=== PATIENT | male | born 1985 | race Caucasian/White ===

== ENCOUNTER 2017-07-04 06:10 | Emergency (ER) | payer OTHER ==
[2017-07-04 06:15] VITALS: BP 130/82; PULSE 78; TEMP 98.7; BMI 37.5
--- NOTE | 2017-07-04 06:21 | PDOC ---
History of Present Illness - General Chief Complaint: Back Pain Stated Complaint: BACK PAIN RADIATING TO LEGS Past History - Travel Traveled outside of the country in the last 30 days: No Close contact w/someone who was outside of country & ill: No - Past Medical History Allergies/Adverse Reactions: Allergies Allergy/AdvReac Type Severity Reaction Status Date / Time No Known Allergies Allergy Unverified 07/04/17 06:12 Home Medications: Ambulatory Orders Levothyroxine [Synthroid -] 112 mcg PO DAILY 07/04/17 Naproxen [Naprosyn -] 500 mg PO BID #14 tablet 07/04/17 - Suicide/Smoking/Psychosocial Hx Smoking History: Never smoked Review of Systems - Review of Systems Able to Perform ROS?: Yes Is the patient limited Thai proficient: No Constitutional: No: Symptoms Reported, See HPI, Chills, Diaphoresis, Fever, Loss of Appetite, Malaise, Night Sweats, Weakness, Weight Stable, Unintentional Wgt. Loss, Unexplained wgt Loss, Other HEENTM: No: Symptoms Reported, See HPI, Eye Pain, Blurred Vision, Tearing, Recent change in vision, Double Vision, Cataracts, Ear Pain, Ocular Prothesis, Ear Discharge, Nose Pain, Nose Congestion, Tinnitus, Nose Bleeding, Hearing Loss , Throat Pain, Throat Swelling, Mouth Pain, Dental Problems, Difficulty Swallowing, Mouth Swelling, Other Respiratory: No: Symptoms reported, See HPI, Cough, Orthopnea, Shortness of Breath, SOB with Exertion, SOB at Rest, Stridor, Wheezing, Productive cough, Hemoptysis, Other Cardiac (ROS): No: Symptoms Reported, See HPI, Chest Pain, Edema, Irregular Heart Rate, Lightheadedness, Palpitations, Syncope, Chest Tightness, Other ABD/GI: No: Symptoms Reported, See HPI, Abdominal Distended, Abd. Pain w/ defecation, Blood Streaked Bowels, Constipated, Diarrhea, Difficulty Swallowing , Nausea, Poor Appetite, Poor Fluid Intake, Rectal Bleeding, Vomiting, Indigestion, Abdominal cramping, Tarry Stools, Other Musculoskeletal: Yes: Back Pain, Muscle Pain, Other (pain running down buttocks and anterior bilateral legs) Integumentary: No: Symptoms Reported, See HPI, Bruising, Change in Color, Change in Hair/Nails, Dryness, Erythema, Flushing, Lesions, Lumps, Pallor, Pruritus, Rash, Sweating, Other Neurological: Yes: Other (pain with ambulation) Psychiatric: No: Anxiety, Depression, Frequent Crying, Stressors, Sleep Pattern Change, Emotional Problems, Mood Swings, Change in Appetite, Other Endocrine: No: Symptoms Reported, See HPI, Excessive Sweating, Flushing, Intolerance to Cold, Intolerance to Heat, Increased Hunger, Increased Thirst, Increased Urine, Unexplained Weight Gain, Unexplained Weight Loss, Change in Weight, Other *Physical Exam - Vital Signs Last Vital Signs Temp Pulse Resp BP Pulse Ox 98.7 F 78 18 130/82 97 07/04/17 06:12 07/04/17 06:12 07/04/17 06:12 07/04/17 06:12 07/04/17 06:12 - Physical Exam General Appearance: Yes: Nourished, Appropriately Dressed, Obese HEENT: positive: EOMI, CRISTINA, Normal ENT Inspection, Normal Voice, Symmetrical, TMs Normal, Pharynx Normal Neck: positive: Trachea midline, Supple Respiratory/Chest: positive: Lungs Clear, Normal Breath Sounds Cardiovascular: positive: Regular Rhythm, Regular Rate, S1, S2 Gastrointestinal/Abdominal: positive: Normal Bowel Sounds, Flat, Soft Musculoskeletal: positive: Normal Inspection, Muscle Spasm. negative: CVA Tenderness, Vertebral Tenderness Extremity: positive: Normal Capillary Refill, Normal Inspection Integumentary: positive: Normal Color, Dry, Warm Neurologic: positive: board certified orthodontist II-XII NML intact, Fully Oriented, Alert, Normal Mood/ Affect, Normal Response, Motor Strength 5/5 ED Treatment Course - RADIOLOGY Radiology Studies Ordered: Category Date Time Status LUMBAR SPINE CT W/O CONTRAST [CT] Stat CT Scan 07/04/17 06:15 Ordered Medical Decision Making - Medical Decision Making 07/04/17 06:16 Pt is overweight and out of shape and lwisted last week to lift something up and felt immediate pain in his lumbar spine, with pain radiating down legs. Pt has been able to manage the pain with advil, but now the pain is getting worse. Last week pt was able to ambulate and drive. Now pt is visiting his mom and brother and they bring him in for assessment. Pt has so much pain that he had te be wheeled in via wheelchair from the parking lot. 07/04/17 06:18 Pt will be given percocet and he will get a CT scan of the L spine. No falls or injuries. 07/04/17 06:48 CT scan result is pending. Pt will be signed out to the day ER attending. *DC/Admit/Observation/Transfer Diagnosis at time of Disposition: Sciatic leg pain - Discharge Dispostion Disposition: HOME Condition at time of disposition: Stable - Prescriptions Prescriptions: Naproxen [Naprosyn -] 500 mg PO BID #14 tablet - Referrals Referrals: STAFF,NOT ON [Primary Care Provider] - - Patient Instructions Printed Discharge Instructions: Low Back Pain, DI for Sciatica Additional Instructions: Take naproxen twice a day as needed for pain. Take this medication with food and plenty of water. You may also take tylenol extra strength (500mg) every 4 hours as needed for pain. Please see your primary care doctor within 1 week. Return to the emergency department immediately for any new or concerning symptoms or if your symptoms get worse. Thank you for coming to the Emergency Department today for your care. It was a pleasure to see you today. Please note that your evaluation is INCOMPLETE until you follow-up with your doctor.
[2017-07-04] MEDS ORDERED: ACETAMINOPHEN 500 MG TABLET (FP) PO ONE (08:18)
[2017-07-04] MEDS ORDERED: KETOROLAC TROMETHAMINE 15 MG/ML VIAL IM ONE (08:18)
[2017-07-04] MEDS ORDERED: KETOROLAC TROMETHAMINE 30 MG/1 ML VIAL ONE (08:20)
--- NOTE | 2017-07-04 08:49 | PDOC ---
*Physical Exam - Vital Signs Last Vital Signs Temp Pulse Resp BP Pulse Ox 98.7 F 78 18 130/82 97 07/04/17 06:12 07/04/17 06:12 07/04/17 06:12 07/04/17 06:12 07/04/17 06:12 ED Treatment Course - Medications Given in the ED: ED Medications Discontinued Medications Generic Name Dose Route Start Last Admin Trade Name Kody PRN Reason Stop Dose Admin Acetaminophen 1,000 mg 07/04/17 08:18 07/04/17 08:24 Tylenol - PO 07/04/17 08:19 Not Given ONCE ONE Ketorolac Tromethamine 30 mg 07/04/17 08:18 07/04/17 08:23 Toradol Injection - IM 07/04/17 08:19 30 mg ONCE ONE Administration Oxycodone/Acetaminophen 2 combo 07/04/17 06:15 07/04/17 06:20 Percocet 5/325 - PO 07/04/17 06:16 2 combo ONCE ONE Administration Medical Decision Making - Medical Decision Making 07/04/17 08:37 Patient signed out to me by Dr. Bansal. Briefly, presents with 1 week of lower paraspinal abdominal pain with radiation down his legs c/f sciatica. Patient was pending CT scan which has returned and reveals no acute pathology and mild canal stenosis. Discussed the results with the patient. The patient reports the Percocet has minimally improved his pain. On re-exam, pt with +straight leg test consistent with scaitica, possible 2/2 herniated disc. LE strength and sensory exam wnl. I ordered 30 mg of Toradol IM and will reassess. 07/04/17 08:55 Pt reports moderate relief with toradol and requests to go home. Pt ambulating in ED with antalgic but stable gait. WIll DC to f/u with PMD within 1 week. I discussed the physical exam findings, ancillary test results and final diagnoses with the patient. I answered all of the patient's questions. The patient was satisfied with the care received and felt comfortable with the discharge plan and treatment plan. The patient will call their primary care physician within 24 hours to arrange follow-up and will return to the Emergency Department with any new, persistent or worsening symptoms. *DC/Admit/Observation/Transfer Diagnosis at time of Disposition: Pain in lower extremity due to sciatica - Discharge Dispostion Disposition: HOME Condition at time of disposition: Stable Admit: No - Patient Instructions Printed Discharge Instructions: Low Back Pain, DI for Sciatica Additional Instructions: Take naproxen twice a day as needed for pain. Take this medication with food and plenty of water. You may also take tylenol extra strength (500mg) every 4 hours as needed for pain. Please see your primary care doctor within 1 week. Return to the emergency department immediately for any new or concerning symptoms or if your symptoms get worse. Thank you for coming to the Emergency Department today for your care. It was a pleasure to see you today. Please note that your evaluation is INCOMPLETE until you follow-up with your doctor. - Attestations Physician Attestion: 07/04/17 08:58 I, Dr. Yovana Mendoza MD, attest that this document has been prepared under my direction and personally reviewed by me in its entirety. I further attest, that it accurately reflects all work, treatment, procedures and medical decision -making performed by me.
== END 2017-07-04 09:06 | disposition home or self-care (01) ==
LOC: FER 06:10
PROC: 3E0233Z Introduction of Anti-inflammatory into Muscle, Percutaneous Approach (ICD-10-PCS; principal; 2017-07-04)
DX: M54.40 Lumbago with sciatica, unspecified side (principal)
CPT/HCPCS: 72131-TC; 99282-25

== ENCOUNTER 2019-11-02 01:27 | Day surgery (SDC) | payer BC ==
--- NOTE | 2019-11-02 01:38 | PDOC ---
History of Present Illness - General Chief Complaint: Pain, Acute Stated Complaint: ABDOMINAL PAIN RADIATING INTO BACK Time Seen by Provider: 11/02/19 01:29 History Source: Patient Exam Limitations: No Limitations - History of Present Illness Initial Comments: 11/02/19 01:35 This is a 34-year-old male who comes in complaining of epigastric pain radiating to his back. Patient has a history of elevated liver enzymes and had a CAT scan today to rule out gallstones and gallbladder problems. Patient said he does not have the results of the ultrasound yet. Patient said that he had acute onset of the pain about 4 hours ago. Patient denies any nausea or vomiting. Patient denies any fevers, chills or diarrhea. Patient denies history of similar pain in the past. Patient denies any chest pain or shortness of breath. Allergies: as per nursing notes Past Medical History: none Social history: Lives with family. No smoking. No alcohol. No illicit drugs. Surgical history: None General: No fevers or chills, no weakness, no weight loss HEENT: No change in vision. No sore throat,. No ear pain CardioVascular: no chest discomfort. No shortness of breath Respiratory:No cough, or wheezing. Gastrointestinal: no nausea, vomiting, diarrhea or constipation, No rectal bleeding, abdominal pain as per HPI Genitourinary: No dysuria, hematuria, or frequency Musculoskeletal: No joint or muscle pain or swelling Neurologic: No headache, vertigo, dizziness or loss of consciousness Psychiatric: nor depression Skin: No rashes or easy bruising Endocrine: no increased thirst or abnormal weight change Allergic: no skin or latex allergy All other systems reviewed and normal Exam: General: Well-nourished well-developed individual, no acute distress HEENT: Throat: Normal, tonsils normal, no erythema or exudate Neck: Supple, no meningeal signs, no lymphadenopathy Eyes::Pupils equal reactive and round, extraocular motion intact Chest: Nontender to palpation Cardiac: S1-S2 normal, regular rate and rhythm, no murmurs rubs or gallops Respiratory: Lungs clear to auscultation bilateral Abdomen: Soft, nondistended, normal bowel sounds, there is tenderness on palpation in the epigastric region no guarding or rebound. Extremities: Warm, dry, no cyanosis, clubbing, or edema Skin: No rashes Neuro: Alert and oriented x3, CN II - XII intact, nonfocal exam with normal strength, normal sensation, normal reflexes, normal gait, Psych: Normal mood and affect Assessment and plan: This is a 34-year-old male with epigastric pain radiating to his back work-up initiated including CBC, comp, lipase, EKG, cardiac enzymes , CAT scan of abdomen and pelvis to rule out pancreatitis. 11/02/19 01:54 11/02/19 05:01 patient feels much better after the Toradol and morphine. Patient however does have a CAT scan that indicates he has acute cholecystitis and recommends a ultrasound so we will get the ultrasound. Patient has an elevated white count with a CAT scan that shows probable cholecystitis. I will start patient on IV antibiotics at this time. Care of this patient was transferred to Dr. Devries at 7 AM. Patient ultrasound is still pending. Patient was given IV antibiotics for presumptive acute cholecystitis. Case discussed in detail with oncoming Emergency Physician including history, physical exam and ancillary studies. Oncoming Emergency Physician has assumed care for the patient and will complete the evaluation and treatment. Patient is aware of the plan. Pt is clinically unchanged and stable. 11/02/19 06:43 Past History - Past Medical History Allergies/Adverse Reactions: Allergies Allergy/AdvReac Type Severity Reaction Status Date / Time No Known Allergies Allergy Verified 11/02/19 02:13 Home Medications: Ambulatory Orders Levothyroxine [Synthroid -] 112 mcg PO DAILY 07/04/17 Thyroid Disease: Yes - Psycho Social/Smoking Cessation Hx Smoking History: Never smoked ED Treatment Course - LABORATORY CBC & Chemistry Diagram: 11/02/19 01:40 11/02/19 01:40 Discharge - Discharge Information Problems reviewed: Yes Clinical Impression/Diagnosis: Abdominal pain Qualifiers: Abdominal location: right upper quadrant Qualified Code(s): R10.11 - Right upper quadrant pain Condition: Stable - Follow up/Referral - Patient Discharge Instructions - Post Discharge Activity
[2019-11-02] MEDS ORDERED: morphine CARPU-JECT 2 MG/1 ML DISP.SYRIN IVPUSH ONE (01:52)
[2019-11-02] MEDS ORDERED: KETOROLAC TROMETHAMINE 30 MG/1 ML VIAL IVPUSH ONE (01:52)
[2019-11-02] MEDS ORDERED: SODIUM CHLORIDE 1,000 ML IV SCH ×4 (02:00→22:20)
[2019-11-02] MEDS ORDERED: KETOROLAC TROMETHAMINE 30 MG/1 ML VIAL ONE (02:07)
[2019-11-02] MEDS ORDERED: morphine SULFATE 4 MG/ML VIAL ONE (02:07)
[2019-11-02 02:37] LABS: BASO % 0.5 % (0-2.0); EOS % 2.5 % (0-4.5); HEMOGLOBIN 14.3 GM/dL (11.7-16.9); LYMPH % 26.1 % (8-40); MCH 29.7 pg (25.7-33.7); MCHC 34.1 g/dl (32.0-35.9); MEAN CELL VOLUME 87.1 fl (80-96); MEAN PLT VOLUME 10.4 fl (7.5-11.1); MONO % 7.2 % (3.8-10.2); NEUT % 63.7 % (42.8-82.8); PLATELET COUNT 243 K/MM3 (134-434); RBC 4.82 M/mm3 (4.00-5.60)
[2019-11-02 03:07] LABS: ALK PHOS 97 U/L (45-117); ANION GAP 9 MMOL/L (8-16); BILIRUBIN,TOTAL 0.4 mg/dL (0.2-1); BLOOD UREA NITROGEN 16.5 mg/dL (7-18); CALCIUM 9.4 mg/dL (8.5-10.1); CHLORIDE 104 mmol/L (98-107); CO2 25 mmol/L (21-32); CREATININE 0.9 mg/dL (0.55-1.3); GLUCOSE,RANDOM 156 mg/dL (74-106); LIPASE 162 U/L (73-393); POTASSIUM 3.9 mmol/L (3.5-5.1); SGOT/AST 59 U/L (15-37); SGPT/ALT 186 U/L (13-61); SODIUM 137 mmol/L (136-145); TOT PROT 7.5 g/dl (6.4-8.2)
[2019-11-02] MEDS ORDERED: PIPERACILLIN/TAZOB 4.5 GM 4.5 GM in DEXTROSE 5%-WATER 100 ML IVPB ONE (05:04)
[2019-11-02] MEDS ORDERED: PIPERACILLIN/TAZOBACTAM 4.5 GM VIAL IVPB ONE (05:51)
[2019-11-02] MEDS ORDERED: SODIUM CHLORIDE 1,000 ML IV ONE (06:56)
--- NOTE | 2019-11-02 07:37 | PDOC ---
*Physical Exam - Vital Signs Last Vital Signs Temp Pulse Resp BP Pulse Ox 97.8 F 64 16 109/70 98 11/02/19 02:15 11/02/19 07:29 11/02/19 07:29 11/02/19 07:29 11/02/19 07:29 - Physical Exam 11/02/19 07:34 awake alert lungs clear bilat heart rrrr no mrg abd soft min tenderness epigastric area. no rebound no guarding. ED Treatment Course - LABORATORY CBC & Chemistry Diagram: 11/02/19 01:40 11/02/19 01:40 - ADDITIONAL ORDERS Additional order review: Laboratory Results 11/02/19 11/02/19 11/02/19 01:45 01:40 01:40 Sodium 137 Potassium 3.9 Chloride 104 Carbon Dioxide 25 Anion Gap 9 BUN 16.5 Creatinine 0.9 Est GFR (CKD-EPI)AfAm 130.52 Est GFR (CKD-EPI)NonAf 112.62 Random Glucose 156 H Lactic Acid 1.7 Calcium 9.4 Total Bilirubin 0.4 AST 59 H ALT 186 H Alkaline Phosphatase 97 Creatine Kinase 81 Troponin I < 0.02 Total Protein 7.5 Albumin 4.0 Lipase Cancelled 162 11/02/19 01:40 RBC 4.82 MCV 87.1 MCHC 34.1 RDW 13.0 MPV 10.4 Neutrophils % 63.7 Lymphocytes % 26.1 Monocytes % 7.2 Eosinophils % 2.5 Basophils % 0.5 - Medications Given in the ED: ED Medications Discontinued Medications Generic Name Dose Route Start Last Admin Trade Name Freq PRN Reason Stop Dose Admin Piperacillin Sod/Tazobactam 100 mls @ 200 mls/hr 11/02/19 05:04 11/02/19 06: 04 Sod 4.5 gm/ Dextrose IVPB 11/02/19 05:33 200 mls/hr ONCE ONE Administration Protocol Ketorolac Tromethamine 30 mg 11/02/19 01:52 11/02/19 02:13 Toradol Injection - IVPUSH 11/02/19 01:53 30 mg ONCE ONE Administration Morphine Sulfate 2 mg 11/02/19 01:52 11/02/19 02:13 Morphine Injection - IVPUSH 11/02/19 01:53 2 mg ONCE ONE Administration Medical Decision Making - Medical Decision Making 11/02/19 07:34 34 yo male recently diagnosed diabetes 1 week ago. started on metformin, which was dc'd due to elevated liver enzymes. here today c/o epigastric pain, n/v. pt seen overnight by prior attending. assumed care of pt at [address] a/p which showed dilated gb, questionable wall edema. us pending. labs noted for mild liver elevation/ review pt prior med record in his chart in phone, had LFT 65, 134 on 10/18/19. has been having epigastric pain after eating for some time. currently not on any diabetes medication. no f/c no other complaints. plan : await us results, iv hydration. has already been given zosyn. 11/02/19 07:46 gallbladder us with stone in the neck, nonmobile. pericholecystic fluid, thickened. poss cholecystitis. surgery paged. given second L ns bolus, and NS 200 ml / hr 11/02/19 07:[address] Champion. [phone] called awaiting call back 11/02/19 08:19 11/02/19 09:14 d/w dr Champion. states pt LFT were elevated on 10/18, then increased even further on 10/28, which were slightly higher than today. us performed yesterday did show a stone, but not impacted and no pericholecystic fluid. todays us is change from day prior. will coordinate with patient post operatively to arrange starting medication for Diabetes. has been in communication with patient ongoing. Discharge - Discharge Information Problems reviewed: Yes Clinical Impression/Diagnosis: Cholecystitis Abdominal pain Qualifiers: Abdominal location: right upper quadrant Qualified Code(s): R10.11 - Right upper quadrant pain Condition: Stable - Admission Yes - Follow up/Referral - Patient Discharge Instructions - Post Discharge Activity
[2019-11-02] MEDS ORDERED: SODIUM CHLORIDE 0.9% 1000 ML INFUS.BAG IV ONE (07:45)
[2019-11-02 09:37] VITALS: BMI 39.9
--- NOTE | 2019-11-02 11:23 | EKG ---
Test Reason : Blood Pressure : / mmHG Vent. Rate : 070 BPM Atrial Rate : 070 BPM P-R Int : 122 ms QRS Dur : 100 ms QT Int : 388 ms P-R-T Axes : 014 010 019 degrees QTc Int : 419 ms NORMAL SINUS RHYTHM NORMAL ECG NO PREVIOUS ECGS AVAILABLE Confirmed by Zen Arita MD ([id number]) on 11/02/2019 11:22:54 AM Referred By: ELICEO SIMS Confirmed By:Zen Arita MD
--- NOTE | 2019-11-02 11:34 | HP ---
Admitting History and Physical - Primary Care Physician PCP: Kelly Champion - Admission Chief Complaint: epigastric pain through to back History of Present Illness: 34yo obese M with hypothyroidism, newly diagnosed with DM2, presented with epigastric pain radiating to back, without N/V, F/C, or change in bowel habits. He had experienced milder pain in July and August after late night fast food meals, but they were self-limited. Did not seek attention for those. Recently saw PMD and had A1C of 10, was sent home with metformin, but labs came back with elevated LFTs, so he was told to stop the medicine and was sent for an US yesterday (outside). He came to ER early this am because of the pain, though, and CT and US were done, showing fatty liver and distended gallbladder with possible stone lodged in the neck and some pericholecystic fluid. WBC 11, afebrile, and pain has now resolved. He was given a dose of Zosyn, IV fluids, and is seen and examined on the floor with family present. Glucose was 155, now 110. He is feeling better, resting comfortably. Per ER note, outside US showed a gallstone, but not impacted. AST/ALT higher than 1/14, but a little less than 1/24. Lipase is normal. History Source: Patient, Family Member () Limitations to Obtaining History: No Limitations - Past Medical History Gastrointestinal: Yes: Other (morbid obesity) Endocrine: Yes: Diabetes Mellitus (newly diagnosed - A1C reported as 10), Hypothyroidism - Past Surgical History Past Surgical History: Yes: None - Smoking History Smoking history: Current some day smoker (cigars rarely) Have you smoked in the past 12 months: Yes Aproximately how many cigarettes per day: 0 (cigars only, rarely) - Alcohol/Substance Use Hx Alcohol Use: Yes (rarely) History of Substance Use: reports: None - Social History Usual Living Arrangement: Yes: With Spouse ADL: Independent Occupation: computer technology Home Medications - Allergies Allergies/Adverse Reactions: Allergies Allergy/AdvReac Type Severity Reaction Status Date / Time No Known Allergies Allergy Verified 11/02/19 02:13 - Home Medications Home Medications: Ambulatory Orders Levothyroxine [Synthroid -] 112 mcg PO DAILY 07/04/17 Home Medications (free text): was on metformin for 2 doses couple days ago, but told to stop because of elevated LFTs Family Medical History Family Hx Cardiac Disorders: Mother (unknown heart condition) Other Family History: father of brain aneurysm; brother with hypothyroidism and had gb out Review of Systems - Review of Systems Constitutional: denies: Chills, Fever Eyes: reports: Other (wears glasses). denies: Recent Change in Vision HENT: denies: Difficult Swallowing, Throat Pain Neck: denies: Pain on Movement, Stiffness, Swollen Glands, Tenderness Cardiovascular: denies: Chest Pain, Palpitations Respiratory: denies: Cough, SOB Gastrointestinal: reports: Abdominal Pain (with hpi). denies: Constipation, Diarrhea, Nausea, Vomiting Genitourinary: denies: Burning, Dysuria Musculoskeletal: denies: Back Pain, Joint Pain, Muscle Pain Integumentary: denies: Change in Color, Rash Neurological: denies: Dizziness, Headache, Unsteady Gait Psychiatric: denies: Anxiety, Depression Physical Examination Vital Signs: Vital Signs Temperature 97.6 F 11/02/19 09:13 Pulse Rate 58 L 11/02/19 09:13 Respiratory Rate 16 11/02/19 09:13 Blood Pressure 122/83 11/02/19 09:13 O2 Sat by Pulse Oximetry (%) 98 11/02/19 09:13 Constitutional: Yes: No Distress, Calm, Obese Eyes: Yes: Conjunctiva Clear, EOM Intact. No: Sclera Icterus HENT: Yes: Atraumatic, Normocephalic Neck: Yes: Supple, Trachea Midline Cardiovascular: Yes: Regular Rate and Rhythm Respiratory: Yes: Regular, CTA Bilaterally Gastrointestinal: Yes: Normal Bowel Sounds, Soft, Abdomen, Obese. No: Tenderness, Tenderness, Epigastrium ...Rectal Exam: Yes: Deferred Renal/: No: CVA Tenderness - Left, CVA Tenderness - Right Musculoskeletal: No: Joint Stiffness, Joint Swelling Extremities: No: Cool, Cyanosis Edema: No Peripheral Pulses WNL: Yes Integumentary: No: Jaundice, Rash Neurological: Yes: Alert, Oriented Psychiatric: Yes: Alert, Oriented Labs: CBC, BMP 11/02/19 01:40 11/02/19 01:40 CMP Sodium 137 mmol/L (136-145) 11/02/19 01:40 Potassium 3.9 mmol/L (3.5-5.1) 11/02/19 01:40 Chloride 104 mmol/L (98-107) 11/02/19 01:40 Carbon Dioxide 25 mmol/L (21-32) 11/02/19 01:40 Anion Gap 9 MMOL/L (8-16) 11/02/19 01:40 BUN 16.5 mg/dL (7-18) 11/02/19 01:40 Creatinine 0.9 mg/dL (0.55-1.3) 11/02/19 01:40 Est GFR (CKD-EPI)AfAm 130.52 11/02/19 01:40 Est GFR (CKD-EPI)NonAf 112.62 11/02/19 01:40 Random Glucose 156 mg/dL (74-106) H 11/02/19 01:40 Lactic Acid 1.7 mmol/L (0.4-2.0) 11/02/19 01:45 Calcium 9.4 mg/dL (8.5-10.1) 11/02/19 01:40 Total Bilirubin 0.4 mg/dL (0.2-1) 11/02/19 01:40 AST 59 U/L (15-37) H 11/02/19 01:40 ALT 186 U/L (13-61) H 11/02/19 01:40 Alkaline Phosphatase 97 U/L (45-117) 11/02/19 01:40 Creatine Kinase 81 U/L (26-308) 11/02/19 01:40 Troponin I < 0.02 ng/ml (0.00-0.05) 11/02/19 01:40 Total Protein 7.5 g/dl (6.4-8.2) 11/02/19 01:40 Albumin 4.0 g/dl (3.4-5.0) 11/02/19 01:40 Lipase 162 U/L (73-393) 11/02/19 01:40 Imaging - Results Cat Scan: Report Reviewed, Image Reviewed (likely fatty liver, no acute abnormalities) Ultrasound: Report Reviewed, Image Reviewed (distended gallbladder with a little pericholecystic fluid, possible stone lodged in neck of gallbladder, no other stones, thickened area of wall, no ductal dilation) EKG: Report Reviewed (NSR 70) Problem List - Problems (1) Calculus of gallbladder with acute cholecystitis and obstruction Assessment/Plan: most likely impacted stone in neck of gallbladder with element of acute cholecystitis admit to surgery 23H/satellite NPO until postop pain meds prn nonnarcotics first line DVT prophylaxis periop antibiotics Discussed with patient risks, benefits and alternatives of laparoscopic possible open cholecystectomy, including but not limited to bleeding, infection , injury to adjacent structures, bile leak or ductal injury, intraabdominal abscess, incisional hernia, need for further procedures, ; alternatives include antibiotics, delayed or no surgery - risks of this include recurrence of biliary colic, cholecystitis, cholangitis, pancreatitis. Patient desires to proceed with operation - will take to OR for above. Informed consent signed for same. Code(s): K80.01 - CALCULUS OF GALLBLADDER W ACUTE CHOLECYSTITIS W OBSTRUCTION (2) Epigastric pain Code(s): R10.13 - EPIGASTRIC PAIN (3) Hypothyroidism Assessment/Plan: continue home med Code(s): E03.9 - HYPOTHYROIDISM, UNSPECIFIED Qualifiers: Hypothyroidism type: unspecified Qualified Code(s): E03.9 - Hypothyroidism , unspecified (4) Diabetes mellitus with hyperglycemia, without long-term current use of insulin Assessment/Plan: FS with SSI while in hospital will f/u with PMD outpatient for medication/long-term mgmt ok to leave Freestyle monitor/probe on left arm diabetic diet when po resumed Code(s): E11.65 - TYPE 2 DIABETES MELLITUS WITH HYPERGLYCEMIA Qualifiers: Diabetes mellitus type: type 2 Qualified Code(s): E11.65 - Type 2 diabetes mellitus with hyperglycemia (5) Morbid obesity with BMI of 40.0-44.9, adult Code(s): E66.01 - MORBID (SEVERE) OBESITY DUE TO EXCESS CALORIES; Z68.41 - BODY MASS INDEX (BMI) 40.0-44.9, ADULT
[2019-11-02] MEDS ORDERED: fentaNYL CITRATE 250 MCG/5 ML VIAL ONE (12:05)
[2019-11-02] MEDS ORDERED: PROPOFOL 20 ML ONE ×3 (12:05)
[2019-11-02] MEDS ORDERED: ROCURONIUM BROMIDE 50 MG/5 ML SYRINGE ONE (12:05)
[2019-11-02] MEDS ORDERED: SUCCINYLCHOLINE CHLORIDE 200 MG/10 ML SYRINGE ONE (12:05)
[2019-11-02] MEDS ORDERED: MIDAZOLAM HCL 2 MG/2 ML SINGLE DOSE VIAL ONE (12:06)
[2019-11-02] MEDS ORDERED: BUPIVACAINE HCL/PF 0.5% (5MG/ML) 10 ML VIAL ONE (12:13)
[2019-11-02] MEDS ORDERED: LIDOCAINE HCL 1%, 10 MG/ML (20ML VIAL) ONE (12:13)
[2019-11-02] MEDS ORDERED: CEFOXITIN SODIUM/DEXTROSE,ISO 2 GM/50 ML BAG ONE (12:49)
[2019-11-02] MEDS ORDERED: BUPIVACAINE HCL/PF 0.5% (5 MG/ML) 30 ML VIAL IJ ONE (13:55)
[2019-11-02] MEDS ORDERED: BENZOIN/ALOE VERA/STORAX/TOLU 58 ML BOTTLE ONE (13:57)
[2019-11-02] MEDS ORDERED: NEOSTIGMINE METHYLSULFATE 0.5 MG/ML - 10 ML MDV ONE (14:14)
--- NOTE | 2019-11-02 14:23 | OP ---
<Aishwarya Mann - Last Filed: 11/02/19 14:21> Operative Note - Note: Operative Date: 11/02/19 Pre-Operative Diagnosis: acute cholecystitis Operation: laparoscopic cholecystectomy Post-Operative Diagnosis: Same as Pre-op Surgeon: Sivakumar Vela Cast Iron Dipper: Aishwarya Mann Anesthesiologist/HEADLINE WRITER: Gisele Roger Anesthesia: General, Local Specimens Removed: gallbladder Estimated Blood Loss (mls): 20 Fluid Volume Replaced (mls): 1,000 Operative Report Dictated: Yes <Sivakumar Vela - Last Filed: 11/02/19 14:56> Operative Note - Note: Post-Operative Diagnosis: Same as Pre-op Anesthesia: General, Local Estimated Blood Loss (mls): 5 Fluid Volume Replaced (mls): 1,500 Operative Report Dictated: Yes
--- NOTE | 2019-11-02 14:23 | SURG ---
Surgery Book Repairer Note Book Repairer: Aishwarya Mann PA-C Date of Service: 11/02/19 Diagnosis: Acute cholecystitis Procedure: laparoscopic cholecystectomy I was present for the entirety of the operative procedure. For further detail, please refer to operative report. Visit type - Case Type Case Type: ED Admission - Emergency Emergency Visit: Yes Care time: The patient presented to the Emergency Department on the above date and was hospitalized for further evaluation of their emergent condition. - New patient This patient is new to me today: No
[2019-11-02] MEDS ORDERED: ACETAMINOPHEN 1000 MG/100 ML VIAL (NON FORMULARY) IVPB ONE (14:34)
[2019-11-02] MEDS ORDERED: ACETAMINOPHEN INJECTION 100 ML IVPB ONE (14:40)
--- NOTE | 2019-11-02 14:42 | OP ---
Operative Note - Note: Operative Date: 11/02/19 Pre-Operative Diagnosis: acute cholecystitis w/impacted stone Operation: laparoscopic cholecystectomy Findings: long/distended gallbladder, critical view identified; one mod size stone palpable in gallbladder Post-Operative Diagnosis: Same as Pre-op Surgeon: Sivakumar Vela Sales Account Executive: Aishwarya Mann Anesthesiologist/MESSENGER OFFICE: Gisele Roger (sc[place]) Anesthesia: General, Local (20ml 0.5% marcaine) Specimens Removed: gallbladder to pathology Estimated Blood Loss (mls): 5 Fluid Volume Replaced (mls): 1,500 (crystalloid) Operative Report Dictated: Yes
[2019-11-02] MEDS ORDERED: ONDANSETRON 4 MG/2 ML VIAL ONE (14:45)
[2019-11-02] MEDS ORDERED: PROMETHAZINE HCL 25 MG/1 ML VIAL IVPUSH PRN (14:57)
[2019-11-02] MEDS ORDERED: ONDANSETRON 4 MG/2 ML VIAL IVPUSH PRN ×2 (14:57→22:20)
[2019-11-02] MEDS ORDERED: DEXAMETHASONE SOD PHOSPHATE 4 MG/1 ML VIAL ONE (14:58)
[2019-11-02] MEDS: INSULIN SLIDING SCALE (NOVOLOG) 1 VIAL SQ SCH ×2 (17:28→23:33)
[2019-11-02] MEDS ORDERED: IBUPROFEN 600 MG TABLET (FP) PO SCH (18:00)
[2019-11-02] MEDS ORDERED: ACETAMINOPHEN 325 MG TABLET (FP) PO SCH (21:00)
[2019-11-02] MEDS: IBUPROFEN 600 MG TABLET (FP) PO SCH (23:23)
[2019-11-03] MEDS: ACETAMINOPHEN 325 MG TABLET (FP) PO SCH ×2 (03:34→08:10)
[2019-11-03] MEDS: IBUPROFEN 600 MG TABLET (FP) PO SCH ×2 (06:01→13:00)
[2019-11-03] MEDS: INSULIN SLIDING SCALE (NOVOLOG) 1 VIAL SQ SCH ×2 (06:18→11:35)
[2019-11-03] MEDS ORDERED: LEVOTHYROXINE NA 112 MCG TABLET (FP) PO SCH ×2 (07:00)
[2019-11-03 10:44] VITALS: PULSE 79; TEMP 97.4
--- NOTE | 2019-11-03 11:49 | DS ---
Physical Examination Vital Signs: Vital Signs Temperature 97.4 F L 11/03/19 10:41 Pulse Rate 79 11/03/19 10:41 Respiratory Rate 18 11/03/19 10:41 Blood Pressure 92/53 L 11/03/19 10:41 O2 Sat by Pulse Oximetry (%) 98 11/03/19 06:54 Findings/Remarks: s/p lap humza seen ambulating in [place], examined in bed present feeling well, tolerating diet pain incisional, managed with alternating nonnarcotics voiding, passed gas, no BM yet Constitutional: Yes: No Distress, Calm, Obese Eyes: Yes: Conjunctiva Clear, EOM Intact HENT: Yes: Atraumatic, Normocephalic Neck: Yes: Supple, Trachea Midline Cardiovascular: Yes: Regular Rate and Rhythm, Tachycardia (mild - just got back from walking) Respiratory: Yes: Regular, CTA Bilaterally Gastrointestinal: Yes: Normal Bowel Sounds, Soft, Abdomen, Obese, Tenderness ( umbilical incisional mainly, no quadrant tenderness) Extremities: No: Cool, Cyanosis Integumentary: Yes: Incision (x4 dressed). No: Jaundice, Rash Wound/Incision: Yes: Steri Strips (under dressings), Dressing Dry and Intact (x4 ). No: Dressing Removed Neurological: Yes: Alert, Oriented. No: Unsteady Gait Psychiatric: Yes: Alert, Oriented Labs: no new labs Discharge Summary Problems reviewed: Yes Reason For Visit: CHOLECYSTITIS Current Active Problems Abdominal pain (Acute) Calculus of gallbladder with acute cholecystitis and obstruction (Acute) Diabetes mellitus with hyperglycemia, without long-term current use of insulin ( Acute) Epigastric pain (Acute) Hypothyroidism (Acute) Morbid obesity with BMI of 40.0-44.9, adult (Acute) Procedures: Principal: laparoscopic cholecystectomy Hospital Course: 34yo obese M with hypothyroidism, newly diagnosed DM2 presented with epigstric pain and elevated LFTs, wbc 11, found to have impacted stone in neck of gallbladder. He underwent laparoscopic cholecystectomy and received perioperative antibiotics (one dose Zosyn, one dose Cefoxitin). Postop, he has done well, ambulating, voiding, tolerating diet, and incisional pain is controlled with alternating tylenol and ibuprofen. Incisional sites with dressings are clean, dry and intact. He is discharged home with lifting restrictions, to follow up in 3 weeks. Sugars have been reasonable during his stay, and he will continue to monitor them at home with his Freestyle continuous probe. Also to follow up with PMD within 1-2 weeks. Time spent on discharge: 35 minutes Health Concerns: recently diagnosed diabetes Plan of Treatment: continue monitoring glucose, f/u with PMD Condition: Good - Instructions Diet, Activity, Other Instructions: Postoperative instructions: You had a laparoscopic cholecystectomy on 11/02/[address] Sivakumar Vela of [facility]. Activity: Resume your usual activities gradually, but no heavy exertion or lifting more than 10-15 pounds for 1 month. Remove dressings 48 hours after surgery; sticky tapes underneath will fall off by themselves. You may shower daily starting then, just pat the incision areas dry. No bath or swimming until skin incisions have healed. Eat lightly at first, but advance to your usual diet as tolerated. Pain: For pain, you may use and alternate Tylenol (acetaminophen) 1-2 pills and/ or ibuprofen 200 mg (1-3 pills) every 6 hours each as needed; this means that you can take one OR the other at 3-hour intervals. Do not take more than 4000mg of acetaminophen in a day. Take medications as prescribed or indicated on the labeling. Follow-up: Call Dr. Vela's office at [phone] to make your postop appointment (Thursday in approximately 3 weeks after surgery). Clinic is held in the [facility] on the first floor of [facility]. Call the office if you have: * increasing pain not responsive to pain medication * fever of 101F or higher * vomiting * unusual or increasing bleeding or drainage from wounds * increasing redness or swelling at wound sites Also, see your primary medical doctor (Dr. Champion) within 1-2 weeks. Referrals: Sivakumar Vela MD [Staff Physician] - Kelly Champion [Non Staff, Medical] - Disposition: HOME - Home Medications Comprehensive Discharge Medication List: Ambulatory Orders Levothyroxine [Synthroid -] 112 mcg PO DAILY 07/04/17 Acetaminophen [Tylenol .Regular Strength -] 650 mg PO Q6H tablet 11/03/19 Ibuprofen [Motrin -] 600 mg PO Q6H tablet 11/03/19
[2019-11-03 13:17] VITALS: BP 108/60
--- NOTE | 2019-11-04 16:04 | PATH ---
Surgical Pathology Report Patient Name: ELIZABETH HORTON Med. Rec. #: [id number] /Age/Gender: 1985 (Age: 34) / M Account: [id number] Location: [facility] Taken: 11/02/2019 Received: 11/02/2019 Reported: 11/04/2019 Physicians: Sivakumar Vela M.D. Specimen(s) Received GALLBLADDER Clinical History Cholecystitis-acute with impacted stone Final Diagnosis GALLBLADDER, LAPAROSCOPIC CHOLECYSTECTOMY: CHRONIC FOCAL ACUTE CHOLECYSTITIS, CHOLESTEROLOSIS, AND CHOLELITHIASIS. Electronically Signed Becca Leone M.D. Gross Description Received in formalin, labeled "gallbladder," is a 9.3 x 3.0 x 3.0 cm. gallbladder with a 0.2 cm. in length portion of cystic duct attached. The outer surface is mendoza-renner and varies from smooth to shaggy. The lumen contains green, tenacious bile as well as a 2.2 cm in greatest dimension mendoza green, irregular cholelith. The mucosa is dark green and velvety with gold cholesterol stippling. The wall of the gallbladder averages 0.2 cm. in thickness. Technical Service Representative sections are submitted in one cassette. 11/03/2019 saudi11/03/2019
--- NOTE | 2019-11-07 13:43 | OP ---
DATE OF OPERATION: 11/02/2019 PREOPERATIVE DIAGNOSIS: Acute cholecystitis with impacted stone. POSTOPERATIVE DIAGNOSIS: Acute cholecystitis with impacted stone. PROCEDURE PERFORMED: Laparoscopic cholecystectomy. SURGEON: Sivakumar Vela MD WAITER/WAITRESS FORMAL: SHAUNA Herr ANESTHESIA: General endotracheal and local, 20 mL of 0.5% Marcaine. ESTIMATED BLOOD LOSS: 5 mL. FLUIDS: 1500 mL of crystalloid. SPECIMEN: Gallbladder to Pathology. FINDINGS: A long, distended gallbladder. One moderate-sized stone palpable within it. Critical view was identified. DISPOSITION: Stable and extubated to PACU. INDICATIONS FOR PROCEDURE: The patient is a 34-year-old obese male with hypothyroidism and newly diagnosed type 2 diabetes who presented with epigastric pain radiating to his back without nausea, vomiting, fever, chills, or change in bowel habits. He had experienced 2 milder episodes several months prior after late night fast food meals that were self-limited. He was recently seen by his primary care physician with high A1c of 10 and was sent home with metformin, but labs came back with elevated liver functions, so he was told to stop the medicine and was sent for an ultrasound at an outside facility the day prior to presentation. He came to our ER early the next morning because of pain. An additional CT and ultrasound were done showing a fatty liver and a distended gallbladder with a possible stone lodged in the neck and some pericholecystic fluid. His white count was 11,000. Risks, benefits, and alternatives of laparoscopic, possible open, cholecystectomy were discussed with the patient including, but not limited to, bleeding, infection, injury to adjacent structures, bile leak or ductal injury, intra-abdominal abscess, incisional hernia, and need for further procedures and alternatives inclusive of antibiotics with delayed or no surgery, and those risks including recurrence of biliary colic, cholecystitis, cholangitis, pancreatitis, and their sequelae. Patient was agreeable to proceed with the operation, signed informed consent for the same, and is now brought to the OR for this procedure. OPERATIVE TECHNIQUE: The patient was brought to the operating room and laid supine on the operating table. Sequential compression devices were applied to bilateral lower extremities, and 2 g of cefoxitin were given immediately prior to procedure, as his dose of Zosyn had been several hours prior. After induction and intubation by Anesthesia, the patient's abdomen was clipped of hair, prepped and draped in sterile fashion. A small supraumbilical midline incision was made with a scalpel and carried into subcutaneous tissues with electrocautery, until the abdominal wall was identified, scored, and elevated with Ysabel clamps. The peritoneum was entered bluntly with the tip of a clamp, and a fingertip was inserted to ensure entry into the abdominal cavity and the absence of any underlying adhesions. A stay suture of 0 Vicryl was placed in the fascia in [id number] fashion for later closure, and the Toyin trocar was introduced directly into the abdominal cavity and secured in place with the balloon. The abdomen was insufflated with carbon dioxide. The patient was placed in reverse Trendelenburg position, and a laparoscope inserted to inspect the abdominal cavity. The gallbladder was visible at the edge of the liver. Three additional 5-mm ports were placed under direct vision, 1 in the subxiphoid area and 2 in the right upper quadrant. Graspers were introduced to grasp the fundus of the gallbladder from the right and elevate it over the liver edge, as well as the infundibulum of the gallbladder. [place] dissector was then used to begin dissection of the peritoneum at the base of the gallbladder. Hook cautery was also used to begin carefully taking the peritoneum off the medial and lateral aspects of the gallbladder as dissection of the cystic duct and artery were accomplished. The cystic duct became clearly visible and was isolated, as well as the cystic artery just medial to that, until the critical view was identified, with these being the only 2 structures directly entering the gallbladder with the liver bed clearly visible behind. The duct and artery were then each clipped, 2 proximally and 1 distally , and divided with Endo scissors between the clips. The hook cautery was used to continue taking the gallbladder off of the liver bed, until it was completely free, at which point it was placed in an EndoCatch bag and retrieved out the umbilical port site, with the camera in the subxiphoid port. One stone was palpable in the gallbladder. It was passed off as a pathology specimen, and the Toyin trocar and pneumoperitoneum were then re-established. The camera was returned to the umbilical port. The operative site was inspected for hemostasis. The suction home service demonstrator was used to suction some blood and fluid from the area, and there was no active bleeding noted on the liver bed. The 5-mm ports were then all removed under direct vision. The Toyin trocar and camera were also withdrawn, and the abdomen exsufflated of carbon dioxide. The patient was returned to neutral position, and the stay suture at the umbilicus tied to close the fascia there. Hemostasis was achieved at the port sites with electrocautery where needed. Local anesthetic was infiltrated into all the port sites, and skin was closed with 4-0 Vicryl subcuticular sutures, including a running at the umbilicus. Benzoin and Steri-Strips were placed over each incision, and dressings of gauze and Tegaderm placed over these. Counts were correct at the end of the procedure. The patient was then awakened and extubated by Anesthesia, moved back to a stretcher, and taken to the recovery room in stable condition having tolerated the procedure well. SHAUNA Mann was an essential medical assistant supervisor throughout the case, beginning with assisting with entry into the abdominal cavity, grasping and manipulation of the gallbladder throughout the case, helping with retrieval of the gallbladder, local infiltration, and closure of the port sites. Phoenix Chiang/[id number] MTDD
== END 2019-11-03 13:42 | disposition home or self-care (01) ==
LOC: FER 01:27 → SUATTDRO 08:22 → FASUSAT 08:22 → FM/S 08:22 → FASUSAT 11-03 13:42
PROVIDERS: ATTEND Surgery
PROC: 0FT44ZZ Resection of Gallbladder, Percutaneous Endoscopic Approach (ICD-10-PCS; principal; 2019-11-02 12:58)
DX: K80.01 Calculus of gallbladder with acute cholecystitis with obstruction (principal); E11.65 Type 2 diabetes mellitus with hyperglycemia; E66.01 Morbid (severe) obesity due to excess calories; E03.9 Hypothyroidism, unspecified; K76.0 Fatty (change of) liver, not elsewhere classified; Z68.41 Body mass index [BMI] 40.0-44.9, adult
CPT/HCPCS: 36415; 74177-TC; 76705-TC; 80053; 81003; 82550; 82962; 83605; 83690; 84484; 85025; 86850; 86900; 86901; 88304-TC; 93005; 94760; 99282-25; J0131; J7030; Q9967